=== PATIENT | male | born 1940 | race Caucasian/White ===

== ENCOUNTER 2023-10-28 08:00 | Outpatient (CLI) | payer BC | END 2023-11-07 13:50 | disposition home or self-care (01) | LOC: SLB 08:00 → EDSTATUS 11-15 07:30 | PROVIDERS: ATTEND Student in an Organized Health Care Education/Training Program | DX: M17.11 Unilateral primary osteoarthritis, right knee (principal); Z96.651 Presence of right artificial knee joint | CPT/HCPCS: 87081 ==